=== PATIENT | female | born 1995 ===

== ENCOUNTER 2018-04-25 09:32 | Outpatient (CLI) | payer OTHER ==
[~2018-04-25] VITALS: Ht 152.4 cm; Wt 57.6 kg
== END 2018-04-25 09:45 | disposition home or self-care (01) ==
LOC: OFIC 805 09:32
DX: J31.0 Chronic rhinitis (principal); R49.8 Other voice and resonance disorders; J38.2 Nodules of vocal cords; J04.0 Acute laryngitis